=== PATIENT | male | born 1955 | race Caucasian/White ===

== ENCOUNTER 2024-09-10 07:04 | Inpatient (IN) | payer OTHER, SELFPAY ==
[2024-08-13 11:48] LABS: Hematocrit 40.3 % (39.0-52.0); Hemoglobin 13.8 g/dL (13.0-18.0); Mean Corp Hgb Conc. 34.2 g/dL (33.0-37.0); Mean Corpuscular Hgb 32.6 pg (27.0-31.0); Mean Corpuscular Volume 95.3 fL (80.0-94.0); Mean Platelet Volume 12.2 fL (7.4-10.4); Platelet Count 150 10^3/uL (130-400); Red Blood Cell Count 4.23 10^6/uL (4.70-6.10); Red Cell Dist. Width 12.8 % (11.5-14.5)
[2024-08-13 12:13] LABS: ALT (SGPT) 23 U/L (0-50); AST (SGOT) 25 U/L (17-59); Albumin 4.8 g/dl (3.5-5.0); Alkaline Phosphatase 69 U/L (38-126); Blood Urea Nitrogen 17 mg/dl (9-20); Calcium 9.7 mg/dl (8.4-10.2); Carbon Dioxide 29 mmol/L (22-30); Chloride 102 mmol/L (98-107); Glucose 108 mg/dl (70-99); Sodium 139 mmol/L (135-145); Total Protein 7.4 g/dl (6.3-8.2); eGFR > 60.00
[2024-08-13 13:53] LABS: Glycohemoglobin (HgbA1c) 5.9 % (4.0-5.6)
[2024-08-13 14:06] VITALS: BMI 39.5
[2024-08-13 15:17] VITALS: BMI 39.5
--- NOTE | 2024-09-07 14:18 | CM ---
CM reviewed medical records. CM spoke with patient via phone. CM confirmed demographics. Patient lives independently in a two story home. Patient denied history of VN and SNF. Patient has a rolling walker and a cane. Patient is active with his PCP.
Patient has medication coverage and uses [facility] in [place].
CM stated that he would prefer [facility]. As per out patient orthopedics office, patient is out of network for [facility]. Patient is agreeable to [facility] post operatively. CM sent referral via [facility].
Patient stated that his daughter is coming from [facility] to provide care post operatively. Patient stated that daughter has the flu and may not be able to provide supervision. Patient asked if rehab was available. CM advised patient that SNF would
have to be recommended by PT. Patient has another daughter that he can ask to assist.
PLAN[facility]
[2024-09-10] VITALS (12 sets, daily range): BP systolic 95–139; BP diastolic 63–89; PULSE 61; BMI 39.5
[2024-09-10] MEDS: TYLENOL 650 MG PO ×5 (08:00→23:04)
[2024-09-10] MEDS: CELEBREX 200 MG PO (08:00)
[2024-09-10] MEDS: NORMOSOL-R/PLASMALYTE-A 1000 IV ×2 (08:05→13:04)
--- NOTE | 2024-09-10 10:14 | W.PN.UPDATE ---
Update Note
Progress Note Update
L TKA 09/10/24-will be d/c w/ VN,PT
DVT ppx ASA
--- NOTE | 2024-09-10 10:14 | W.DS.TRANS ---
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
-
Discharge Instructions:
Sleep Apnea Risk High
Discharge Diagnosis/Procedures L TKA 09/10/24
Diet As tolerated
Activity With Walker
Driving Restrictions No driving
Bathing Restrictions OK to Shower
Other Services VN,PT
Instructions:
Stand-Alone Forms: Total Hip/Knee Replacement D/C
Changes to Home Medications: Yes
Discharge Medications:
DC Medications w/original date entered in [employer]
atorvastatin 10 mg tablet 10 mg PO QPM 10/09/15
losartan 50 mg tablet 100 mg PO DAILY 10/09/15
fluticasone propionate 50 mcg/actuation nasal spray,suspension 2 spray intranasal DAILY 08/11/24
hydrochlorothiazide 25 mg tablet 25 mg PO DAILY 08/11/24
levocetirizine 5 mg tablet 5 mg PO DAILY 08/11/24
metoprolol succinate 25 mg tablet,extended release 24 hr 25 mg PO BID 08/11/24
mupirocin 2 % topical ointment 1 applic intranasal BID #1 tube 08/13/24
Saccharomyces boulardii 250 mg capsule (Florastor) 250 mg PO BID #1 cap 09/10/24
acetaminophen 325 mg tablet (Tylenol) 650 mg (2 x 325 mg) PO QID #1 tab 09/10/24
aspirin 325 mg tablet 325 mg PO DAILY blood clot prevention #1 tab 09/10/24
cefadroxil 500 mg capsule 500 mg PO BID infection prevention #14 caps 09/10/24
celecoxib 200 mg capsule 200 mg PO DAILY Anti-inflammatory #14 caps 09/10/24
dexamethasone 4 mg tablet 4 mg PO BID inflammation #6 tabs 09/10/24
docusate sodium 100 mg capsule (Colace) 100 mg PO BID stool softner #1 cap 09/10/24
famotidine 20 mg tablet 20 mg PO HS GI prophylaxis #30 tabs 09/10/24
gabapentin 300 mg capsule 300 mg PO HS sleep/pain #10 caps 09/10/24
magnesium hydroxide 400 mg/5 mL oral suspension (Milk of Magnesia) 30 ml PO HS PRN Constipation #1 mL 09/10/24
ondansetron 4 mg disintegrating tablet 4 mg PO Q6H PRN n/v #20 tabs 09/10/24
oxycodone 5 mg tablet 5 mg PO Q6H PRN 1 tab moderate pain, 2 tabs severe pain #30 tabs 09/10/24
sennosides 8.6 mg tablet (Senokot) 17.2 mg (2 x 8.6 mg) PO BID laxative #2 tabs 09/10/24
Home Medication Changes
aspirin 325 mg tablet 325 mg PO DAILY blood clot prevention #1 tab 09/10/24
cefadroxil 500 mg capsule 500 mg PO BID infection prevention #14 caps 09/10/24
celecoxib 200 mg capsule 200 mg PO DAILY Anti-inflammatory #14 caps 09/10/24
dexamethasone 4 mg tablet 4 mg PO BID inflammation #6 tabs 09/10/24
docusate sodium 100 mg capsule (Colace) 100 mg PO BID stool softner #1 cap 09/10/24
famotidine 20 mg tablet 20 mg PO HS GI prophylaxis #30 tabs 09/10/24
gabapentin 300 mg capsule 300 mg PO HS sleep/pain #10 caps 09/10/24
magnesium hydroxide 400 mg/5 mL oral suspension (Milk of Magnesia) 30 ml PO HS PRN Constipation #1 mL 09/10/24
ondansetron 4 mg disintegrating tablet 4 mg PO Q6H PRN n/v #20 tabs 09/10/24
oxycodone 5 mg tablet 5 mg PO Q6H PRN 1 tab moderate pain, 2 tabs severe pain #30 tabs 09/10/24
sennosides 8.6 mg tablet (Senokot) 17.2 mg (2 x 8.6 mg) PO BID laxative #2 tabs 09/10/24
Pending Results: No
[2024-09-10] MEDS: ROXICODONE 5 MG PO (11:52)
--- NOTE | 2024-09-10 12:35 | PTCARENOTE ---
Received patient from PACU via bed around 1215 in stable condition. Left knee dressing CDI. B/L LE with + movement +sensation. Pain 08/10. Ice on left knee. Tele placed on patient. SR per monitor. Patient oriented to room. Daughter at bedside. Call
streeter in reach.
[2024-09-10] MEDS: LOPRESSOR PO (12:58)
[2024-09-10] MEDS: DECADRON IV (13:00)
[2024-09-10] MEDS: TYLENOL PO (13:00)
[2024-09-10] MEDS: DILAUDID 0.5 MG IV (14:43)
[2024-09-10] MEDS: ROXICODONE 10 MG PO ×2 (16:15→23:03)
[2024-09-10] MEDS: ANCEF 5 IV (16:16)
--- NOTE | 2024-09-10 17:16 | W.PN.UPDATE ---
Update Note
Progress Note Update
Patient resting in bed. Complains of pain but appears comfortable. VSS. Pulm: nonlabored. CV: regular. LLE: Dressing CDI. Calf soft. Able to fully extend. Postop xray as expected. ASA for DVT prophylaxis. Plan for discharge home tomorrow
with outpatient PT on Saturday. Patient may benefit from home PT with VN for 2 weeks depending on how he does with PT in AM.
[2024-09-10] MEDS: LIPITOR 10 MG PO (18:25)
[2024-09-10] MEDS: ASPIRIN 325 MG PO (18:26)
[2024-09-10] MEDS: BACTROBAN 2% OINTMENT 1 APPLIC NASAL (20:10)
[2024-09-10] MEDS: COLACE 100 MG PO (20:12)
[2024-09-10] MEDS: LOPRESSOR 25 MG PO (20:13)
[2024-09-10] MEDS: SENOKOT 17.2 MG PO (20:13)
[2024-09-10] MEDS: TORADOL 15 MG IV (20:14)
[2024-09-10] MEDS: DECADRON 4 MG IV (20:58)
[2024-09-10] MEDS: NEURONTIN 300 MG PO (21:04)
[2024-09-10] MEDS: MELATONIN 5 MG PO (23:05)
[2024-09-11] MEDS: ANCEF 5 IV (00:14)
[2024-09-11 03:10] VITALS: BP 123/64
[2024-09-11] MEDS: TYLENOL 650 MG PO ×2 (03:12→08:02)
[2024-09-11 07:16] VITALS: BP 135/84
--- NOTE | 2024-09-11 07:17 | W.PN.ORTHO ---
Today's Communication / Plan
-
PT needs to be determined prior to discharge
Assessment
.
Dressing:
Clean, dry and intact.
Assessment:
Doing well s/p L TKR
Plan
.
Surgery / Date: 09/10/2024
DVT Prophylaxis: Aspirin
Activity:
Out of bed.
PT/OT
Discharge Plan: Home
Discharge Information:
Plan for outpatient PT which is not set up yet. If no PT set up, will need home PT with VN
Subjective
.
.:
Patient resting comfortably. OOB last night. Pain controlled.
Vital Signs and Labs
.
Vital Signs and Labs:
Lab Results
08/13/24 10:10
08/13/24 10:10
Temp Pulse Resp BP Pulse Ox
97.7 F 65 17 123/64 96
09/11/24 03:10 09/11/24 03:10 09/11/24 03:10 09/11/24 03:10 09/11/24 03:10
Non-invasive Hgb result: 14.2
Physical Exam
-
LLE: Dressing CDI. Calf soft. Able to fully extend.
Pulm: nonlabored.
CV: regular
[2024-09-11] MEDS: ASPIRIN 325 MG PO (08:02)
[2024-09-11] MEDS: CELEBREX 200 MG PO (08:02)
[2024-09-11] MEDS: SENOKOT 17.2 MG PO (08:02)
[2024-09-11] MEDS: LOPRESSOR 25 MG PO (08:03)
[2024-09-11] MEDS: COLACE 100 MG PO (08:03)
[2024-09-11] MEDS: TORADOL 15 MG IV (08:03)
[2024-09-11] MEDS: BACTROBAN 2% OINTMENT 1 APPLIC NASAL (08:03)
[2024-09-11] MEDS: COZAAR 50 MG PO (08:03)
[2024-09-11] MEDS: ROXICODONE 10 MG PO (08:06)
[2024-09-11 09:18] VITALS: BP 141/79; PULSE 59; O2SAT 96
[2024-09-11 10:21] VITALS: BP 120/65; PULSE 62
--- NOTE | 2024-09-11 10:21 | CM ---
Addendum entered by Barbara Gooden RN 09/11/24 13:34:
Patient has made an outpatient appointment with [facility]. [facility] referral has been canceled.
PLAN: home with outpatient pt.
Original Note:
CM reviewed medical records. Plan for discharge to home with [facility].
PLAN: home with [facility].
--- NOTE | 2024-09-11 10:53 | VNURNOTE ---
Addendum entered by Teresa Sanford RN 09/11/24 13:11:
Followed up with patient. He confirmed that he has an appt on Saturday at [facility] outpt PT. [facility] Intake updated.
Original Note:
Home Health Liaison met with patient at bedside to discuss [facility] nurse/therapy, visits, schedule and homebound status. Patient is agreeable and understands that visits at home will be 2-3 x per week to assess and teach medical management. Patient's
first choice is to start [facility]pt PT at [facility] He is waiting for call back from [facility] to confirm outpt PT schedule. If outpt PT not able to schedule him early next week, he is agreeable to [facility] and home PT until [facility] started. Will follow up.
[facility]
[2024-09-11 11:10] VITALS: BP 126/70
--- NOTE | 2024-09-11 11:24 | W.PN.ORTHO ---
Today's Communication / Plan
-
d/c
Assessment
.
Distal Motor Intact: Yes
Dressing:
Clean, dry and intact.
Plan
.
Surgery / Date: L TKA 09/10/24
DVT Prophylaxis: Aspirin
Activity:
Out of bed.
PT/OT
Discharge Plan: Home w/ VN
Subjective
.
.:
Patient resting comfortably.
Vital Signs and Labs
.
Vital Signs and Labs:
Lab Results
08/13/24 10:10
08/13/24 10:10
Temp Pulse Resp BP Pulse Ox
97.6 F 65 17 154/67 95
09/11/24 07:16 09/11/24 07:16 09/11/24 07:16 09/11/24 08:03 09/11/24 07:16
Non-invasive Hgb result: 14.2
Physical Exam
-
HEENT: No pallor, cyanosis, or jaundice. Throat clear.
NECK: Supple. No JVD.
RESPIRATORY: Lungs clear to auscultation.
CVS: S1, S2 normal. RRR.� No murmur, rub or gallop.
ABDOMEN: Soft, non-tender. No distension. BS+/normal.
EXTREMITIES: strength equal, no calf pain with palpation
ORTHOPAEDIC SURGEON: AOx3. No focal deficits. hydrogeologist grossly intact
[2024-09-11] MEDS: TYLENOL PO (13:02)
== END 2024-09-11 13:15 | disposition home health service (06) | DRG 470 ==
LOC: 2 SOUTH 07:04
PROVIDERS: ADMITTING PHYSICIAN Orthopaedic Surgery; FAMILY PHYSICIAN Internal Medicine
PROC: 0SRD0J9 Replacement of Left Knee Joint with Synthetic Substitute, Cemented, Open Approach (ICD-10-PCS; 2024-09-10)
DX: M17.12 Unilateral primary osteoarthritis, left knee (principal); I47.10 Supraventricular tachycardia, unspecified; I10 Essential (primary) hypertension; E78.00 Pure hypercholesterolemia, unspecified; I49.3 Ventricular premature depolarization; M72.2 Plantar fascial fibromatosis; M10.9 Gout, unspecified; L30.9 Dermatitis, unspecified; R73.03 Prediabetes; E66.9 Obesity, unspecified; Z60.2 Problems related to living alone; Z68.39 Body mass index [BMI] 39.0-39.9, adult; Z86.0100 Personal history of colon polyps, unspecified; Z87.19 Personal history of other diseases of the digestive system; Z87.442 Personal history of urinary calculi; Z79.82 Long term (current) use of aspirin
CPT/HCPCS: 36415; 73560; 80053; 83036; 85027; 87070; 93005; 97110; 97116; 97162; 97166; 97530; 97535; C1713; C1776

== ENCOUNTER 2024-12-14 21:14 | Emergency (ER) | payer OTHER, SELFPAY ==
[2024-12-14 21:15] VITALS: BP 172/96
[2024-12-14 21:41] LABS: Hematocrit 39.8 % (39.0-52.0); Hemoglobin 13.8 g/dL (13.0-18.0); Mean Corp Hgb Conc. 34.7 g/dL (33.0-37.0); Mean Corpuscular Volume 93.4 fL (80.0-94.0); Nucleated Red Blood Cells % 0 % (-); Platelet Count 146 10^3/uL (130-400); Red Cell Dist. Width 13.1 % (11.5-14.5)
[2024-12-14 21:42] LABS: Urine Character Clear (Clear)
[2024-12-14 21:59] LABS: ALT (SGPT) 22 U/L (0-50); Potassium 4.1 mmol/L (3.5-5.1); Sodium 141 mmol/L (135-145)
[2024-12-14 22:30] LABS: AST (SGOT) 25 U/L (17-59); Albumin 4.5 g/dl (3.5-5.0); Alkaline Phosphatase 81 U/L (38-126); Blood Urea Nitrogen 14 mg/dl (9-20); Calcium 9.4 mg/dl (8.4-10.2); Carbon Dioxide 26 mmol/L (22-30); Chloride 105 mmol/L (98-107); Glucose 173 mg/dl (70-99); Total Protein 7.5 g/dl (6.3-8.2); eGFR > 60.00
[2024-12-14 23:00] VITALS: BP 129/76
--- NOTE | 2024-12-14 23:14 | ED.GENMED ---
History of Present Illness
<Fitz Morgan MD, Resident - Last Filed: 12/15/24 00:31>
General
Chief Complaint: Flank Pain
Source: patient
Exam Limitations: none
Time Seen by Provider: 12/14/24 22:58
History of Present Illness
History of Present Illness:
This is a 69-year-old male with known history of hypertension, arrhythmia, hyperlipidemia, history of renal calculi presenting in the emergency department with acute onset of right flank pain that started around 7 PM tonight. He also reports some
associated nausea and had 1 episode of vomiting. Denies any fevers or chills, denies any urinary symptoms. Denies any recent changes in medical history or medication. Denies any recent sickness or sick contacts. Denies any recent travel.
Past History
<Fitz Morgan MD, Resident - Last Filed: 12/15/24 00:31>
Past History
ED Past Medical History: HTN, Hypercholesterolemia and Other (Renal calculi)
ED Past Surgical History: Orthopedic (plate in the right elbow)
Patient has exhibited threatening behavior?: No
Social History
Tobacco: Non-smoker
Alcohol: None
Drug: None
Living: alone
Family History
Family History: CAD
Review of Systems
<Fitz Morgan MD, Resident - Last Filed: 12/15/24 00:31>
Review of Systems
Constitutional: Denies fever or chills
EENT: Denies sore throat
Respiratory: Denies cough
Cardiac: Denies chest pain
ABD/GI: Reports nausea and vomiting; Denies abdominal pain or diarrhea
: Reports flank pain (Right); Denies dysuria, frequency or dark urine
Musculoskeletal: Reports joint pain
Skin: Reports itching
Neurological: Reports dizzy
Endocrine: Reports polyuria
Hematologic/Lymphatic: Reports bleeding
Phy Exam
<Fitz Morgan MD, Resident - Last Filed: 12/15/24 00:31>
General Physical Exam
General Presentation: moderate distress
General age: appears stated age
General Skin: warm
General Habitus: normal
General Mental: alert
General Hydration: appears well hydrated
Cardiovascular Exam
Cardiovascular Exam: regular rate/rhythm and no murmur
Pulmonary Exam
Pulmonary Exam: lungs clear and no respiratory distress
Gastrointestinal Exam
Gastrointestinal Exam: non tender, soft and cva tenderness (Right)
Musculoskeletal Exam
Musculoskeletal Exam: full ROM
Course
<Fitz Morgan MD, Resident - Last Filed: 12/15/24 00:31>
Orders/Labs/Results
Orders:
Orders
12/14/24 21:30
Complete Blood Count/With Diff Urgent
Comprehensive Metabolic Panel Urgent
Urine Microscopic Reflex Cult Urgent
Urine Reflex Culture from UA [Urinalysis Reflex To Culture] Urgent
Date Specimen was Collected: 12/14/24
Time Specimen was Collected: 21:20
12/14/24 23:14
Ketorolac [Toradol] 15 mg IV NOW STA
Ondansetron Injectable [Zofran] 4 mg IV NOW STA
12/14/24 23:49
0.9% Sodium Chloride 1000 ml [Nss] 1,000 ml IV 250 mls/hr
HYDROmorphone [Dilaudid] 1 mg IV NOW STA
Ketorolac [Toradol] 15 mg IV NOW STA
12/15/24
CT Abd/pel Without Iv Or Oral Urgent
Reason For Exam: R flank pain.
Abnormal Lab Results
12/14/24
21:30
RBC 4.26 L 10^6/uL
(4.70-6.10)
MCH 32.4 H pg
(27.0-31.0)
MPV 11.6 H fL
(7.4-10.4)
Absolute Monos (auto) 0.7 H 10^3/uL
(0.1-0.6)
Glucose 173 H mg/dl
(70-99)
Ur Occult Blood Reflex 3+ A
(Negative)
Urine RBC 7-10 A /HPF
(0-2)
Urine Albumin (Reflex) 1+ A
(Neg - Trace)
12/14/24 21:30
12/14/24 21:30
Vital Signs
Initial and Last Documented VS:
Initial Vital Signs
Temp Pulse Resp BP Pulse Ox
98.5 F 85 20 172/96 100
12/14/24 21:15 12/14/24 21:15 12/14/24 21:15 12/14/24 21:15 12/14/24 21:15
Last Documented Vital Signs
Temp Pulse Resp BP Pulse Ox
98.5 F 74 16 127/81 100
12/14/24 21:15 12/15/24 02:33 12/15/24 02:30 12/15/24 03:01 12/15/24 02:30
<Rhianna Hickey, DO - Last Filed: 12/15/24 03:10>
Orders/Labs/Results
Orders:
Orders
12/14/24 21:30
Complete Blood Count/With Diff Urgent
Comprehensive Metabolic Panel Urgent
Urine Microscopic Reflex Cult Urgent
Urine Reflex Culture from UA [Urinalysis Reflex To Culture] Urgent
Date Specimen was Collected: 12/14/24
Time Specimen was Collected: 21:20
12/14/24 23:14
Ketorolac [Toradol] 15 mg IV NOW STA
Ondansetron Injectable [Zofran] 4 mg IV NOW STA
12/14/24 23:49
0.9% Sodium Chloride 1000 ml [Nss] 1,000 ml IV 250 mls/hr
HYDROmorphone [Dilaudid] 1 mg IV NOW STA
Ketorolac [Toradol] 15 mg IV NOW STA
12/15/24
CT Abd/pel Without Iv Or Oral Urgent
Reason For Exam: R flank pain.
Abnormal Lab Results
12/14/24
21:30
RBC 4.26 L 10^6/uL
(4.70-6.10)
MCH 32.4 H pg
(27.0-31.0)
MPV 11.6 H fL
(7.4-10.4)
Absolute Monos (auto) 0.7 H 10^3/uL
(0.1-0.6)
Glucose 173 H mg/dl
(70-99)
Ur Occult Blood Reflex 3+ A
(Negative)
Urine RBC 7-10 A /HPF
(0-2)
Urine Albumin (Reflex) 1+ A
(Neg - Trace)
12/14/24 21:30
12/14/24 21:30
Vital Signs
Initial and Last Documented VS:
Initial Vital Signs
Temp Pulse Resp BP Pulse Ox
98.5 F 85 20 172/96 100
12/14/24 21:15 12/14/24 21:15 12/14/24 21:15 12/14/24 21:15 12/14/24 21:15
Last Documented Vital Signs
Temp Pulse Resp BP Pulse Ox
98.5 F 74 16 127/81 100
12/14/24 21:15 12/15/24 02:33 12/15/24 02:30 12/15/24 03:01 12/15/24 02:30
<Fitz Morgan MD, Resident - Last Filed: 12/15/24 00:31>
MDM/Problems Addressed
Differential Diagnosis Includes:
Renal stone vs UTI vs unlikely pancreatitis vs less likely muscular
MDM/Problems Addressed:
Initial blood work including complete blood count is unremarkable. CMP showed elevation of blood glucose to 173.
Urinalysis with 3+ occult blood.
IV Toradol 15 mg
IV Zofran [address] abdomen/pelvis without IV or oral contrast
Update 23:45 - Patient continues to be in pain, another dose of Toradol 15 mg and Dilaudid 1 mg IV. 1 L of normal saline bolus also ordered.
Update 12:25 - Patient appears comfortable. Reports minimal pain at this time. Awaiting CT scan
<Fitz Morgan MD, Resident - Last Filed: 12/15/24 00:31>
*Pulse Oximetry
SaO2: 100
Oxygen Mode of Delivery: Room air
Patient hypoxic: no
*Critical Care Note
Total Time (30-74mins, 75-104mins- exclusive of procedures): Not Applicable
<Rhianna Hickey DO - Last Filed: 12/15/24 03:10>
*Radiology
Radiology exam reviewed: radiology read reviewed
ED Attending Note
<Fitz Morgan MD, Resident - Last Filed: 12/15/24 00:31>
-
Portions of this chart may have been created with voice recognition software.� Occasional wrong word or��sound alike� substitutions may have occurred due to the inherent limitations of voice recognition software.
<Rhianna Hickey DO - Last Filed: 12/15/24 03:10>
ED Attending Note
Patient seen and examined by attending physician: Yes
I performed a history and physical exam of patient and discussed management with resident, I reviewed resident's note and agree with documented findings and plan of care.: Yes
ED Attending Note:
69-year-old gentleman with history of kidney stones, previous episode of renal colic 9 years ago. He presents with abrupt onset of moderate to severe right flank pain accompanied with nausea, dry heaves, restlessness, intermittent mild diaphoresis.
Right flank pain feels similar to previous episodes of renal colic. He has not had a fever nor chills. No dysuria no urgency nor hematuria. He took Tylenol without relief.
69-year-old gentleman appears his stated age, awake and alert, oriented x 3. Appears in moderate distress, intermittently moaning. Cooperative.
Abdomen is rotund, soft without appreciable tenderness. Moderate right CVA tenderness to percussion.
Peripheral pulses are full and equal bilaterally.
No focal neurodeficits.
History and exam most concerning for acute renal colic on the right. Less likely AAA, pyelonephritis, musculoskeletal pain.
Labs are unremarkable.
Urinalysis positive for microscopic blood. No evidence of UTI.
Will medicate for pain and nausea. Initiate IV fluids.
Will check CT abdomen pelvis.
02:30
Patient remains pain-free and comfortable after additional dose of Toradol and 1 IV dose of Dilaudid.
Initial hypertension has resolved/normalized with relief of pain.
CAT scan shows mild right-sided hydro�ureter nephrosis and mild perinephric/periureteral fat stranding. No evidence of ureteral calculus. I suspect recently passed stone. Urinalysis is unremarkable, thus pyelonephritis unlikely.
Will continue to observe in the ED until awake and alert, ambulatory with steady unaided gait. Patient has driven himself to the ED.
Will plan to discharge to home with a prescription for a few Percocet, Zofran for as needed return of pain.
Will refer to urology for as needed follow-up.
Discussed importance of staying well-hydrated on a daily basis.
Discharge Plan
Departure
Patient Disposition: Home (Routine Discharge)
Date of Disposition: 12/15/24
Time of Disposition: 03:08
Patient with high blood pressure during this ER visit?: No
Condition: Good
Discharge Problem:
Renal colic on right side, Recently passed R ureteral calculus
Instructions: Kidney Stones (DC)
Prescriptions:
New
oxycodone-acetaminophen [Percocet] 5-325 mg Tablet
1 tab PO Q4HPRN PRN (Reason: pain) Qty: 3 0RF
ondansetron 4 mg tablet,disintegrating
4 mg PO QID PRN (Reason: nausea and vomiting) Qty: 10 0RF
Discontinued
mupirocin 2 % ointment
1 applic intranasal BID Qty: 1 0RF
Patient Comments:
Patient administered this medication @ 06:00 today 09/10/24.
aspirin 325 mg tablet
325 mg PO DAILY Qty: 1 0RF
Rx Instructions:
Take with food
celecoxib 200 mg capsule
200 mg PO DAILY Qty: 14 0RF
Rx Instructions:
*POST-OP USE ONLY
*take with food
cefadroxil 500 mg capsule
500 mg PO BID Qty: 14 0RF
Rx Instructions:
*Take w/ food
*Take w/ probiotic
*POST-OP USE
famotidine 20 mg tablet
20 mg PO HS Qty: 30 0RF
Rx Instructions:
post-op
gabapentin 300 mg capsule
300 mg PO HS Qty: 10 0RF
Rx Instructions:
*POST-OP USE ONLY
ondansetron 4 mg tablet,disintegrating
4 mg PO Q6H PRN (Reason: n/v) Qty: 20 0RF
Rx Instructions:
take 1/2h b/f pain med if recurrent nausea
allow to dissolve in mouth w/o water
oxycodone 5 mg tablet
5 mg PO Q6H PRN (Reason: 1 tab moderate pain, 2 tabs severe pain) Qty: 30 0RF
Rx Instructions:
Ongoing therapy
POST-OP USE ONLY
acetaminophen [Tylenol] 325 mg tablet
650 mg PO QID Qty: 1 0RF
Rx Instructions:
SCHEDULED DOSING
No Action
losartan 50 MG tablet
100 mg PO DAILY
atorvastatin 10 MG tablet
10 mg PO QPM
hydrochlorothiazide 25 mg Tablet
25 mg PO DAILY
metoprolol succinate 25 mg Tablet Extended Release 24 Hr
25 mg PO BID
fluticasone propionate 50 mcg/actuation [place],Suspension
2 spray INTRANASAL DAILY
levocetirizine 5 mg Tablet
5 mg PO DAILY
docusate sodium [Colace] 100 mg capsule
100 mg PO BID Qty: 1 0RF
dexamethasone 4 mg tablet
4 mg PO BID Qty: 6 0RF
Rx Instructions:
take with food
post-op use only
Saccharomyces boulardii [Florastor] 250 mg capsule
250 mg PO BID Qty: 1 0RF
magnesium hydroxide [Milk of Magnesia] 400 mg/5 mL suspension
30 ml PO HS PRN (Reason: Constipation) Qty: 1 0RF
sennosides [Senokot] 8.6 mg tablet
17.2 mg PO BID Qty: 2 0RF
Patient Comments:
Patient took @ 22:00.
Referrals:
Chinedu Connell MD [Active, Urology] - As needed
Teresa Sanchez MD [Family Provider, Internal Medicine]
Interventions
Interventions:
*Risk Screen - Suicide Last Done: 12/14/24 21:15
*General Assessment Last Done: 12/14/24 21:15
*Neglect/Abuse Screening Last Done: 12/14/24 21:15
*ED COVID-19 Vaccine History Last Done: 12/14/24 21:15
RC-Rhikdl-Hyseujophi Assessment Last Done: 12/14/24 23:15
ED-Male Genitourinary Assessment Last Done: 12/14/24 23:15
Discharge Date and Time
Print Language: NIGERIAN
[2024-12-14 23:26] LABS: Urine Squamous Cell 0-2 /LPF (Few); Urine White Cell 0-2 /HPF (0-5)
[2024-12-14] MEDS: ZOFRAN 4 MG IV (23:36)
[2024-12-14] MEDS: TORADOL 15 MG IV (23:36)
[2024-12-14] MEDS: NSS 1000 IV (23:57)
[2024-12-14] MEDS: DILAUDID 1 MG IV (23:59)
[2024-12-15] MEDS: TORADOL 15 MG IV
[2024-12-15 02:29] VITALS: BP 139/80
[2024-12-15 03:01] VITALS: BP 127/81
== END 2024-12-15 03:17 | disposition home or self-care (01) ==
LOC: EMR 21:14
PROVIDERS: Emergency Medicine; EMERGENCY PHYSICIAN Emergency Medicine; FAMILY PHYSICIAN Internal Medicine
DX: N23 Unspecified renal colic (principal); R11.2 Nausea with vomiting, unspecified; I10 Essential (primary) hypertension; E78.00 Pure hypercholesterolemia, unspecified; Z87.442 Personal history of urinary calculi
CPT/HCPCS: 96374; 96375; 96376; 96361; 99284; 74176; 80053; 81003; 81015; 85025